=== PATIENT | female | born 1990 | race Caucasian/White ===

== ENCOUNTER → 2017-10-06 13:27 | Outpatient (CLI) | payer OTHER, SELFPAY | PROVIDERS: Visit Provider Podiatrist | DX: M25.572 Pain in left ankle and joints of left foot (principal); M79.672 Pain in left foot ==

== ENCOUNTER → 2018-09-06 12:49 | Outpatient (CLI) | payer OTHER, SELFPAY ==
--- NOTE | 2018-09-06 12:51 | US_ITS ---
US Arterial Ankle Brachial Ind History: ITS.REASON: Dependant edema, dizziness, weakness lower extremities, current smoker ORDERING PHYSICIAN: Terrell Hyman PATIENT AGE: 28 years TECHNIQUE: Segmental pressures obtained of both right and left leg. These are compared to brachial blood pressure to yield index at each level sampled including summary MITALI. The data sheets from the procedure are available in PACS FINDINGS Rest study only performed today No prior studies available for comparison. Blood pressures reported are in millimeters mercury. RIGHT LEG MITALI = 1.0. RIGHT LEG TBI=.7 Brachial BP: 133 Thigh BP: 144 Calf BP: 133 Ankle PT: 136 Ankle DP : 164 Digit =99 LEFT LEG MITALI = 1.1 LEFT LEG TBI= .8 Brachial BPD: 126 Thigh BP: 143 Calf BP: 147 Ankle PT:148 Ankle DP: 157 Digit = 102 Pulses and waveforms: Normal IMPRESSION: The ABIs as reported above are within normal limits. Waveforms and pulses are also unremarkable.
--- NOTE | 2018-09-06 12:51 | NVE_ITS ---
Venous Exam Indications: 729.5 Pain in limb. IMPRESSIONS 1. There is no evidence of significant Reflux. 2. No evidence of deep or superficial vein thrombosis involving the right lower extremity and left lower extremity Complete lower extremity venous duplex evaluation. Doppler flow study including spectral analysis, color and vela scale imaging. Location: Vascular laboratory. Patient status: Outpatient. Tables: Venous flow and imaging: + +-------+ + Location Overall Flow properties + +-------+ + Right common femoral Patent Normal phasicity; spontaneous; normal augmentation; compressible + +-------+ + Right saphenofemoral junction Patent Compressible + +-------+ + Right profunda femoral Patent Compressible + +-------+ + Right femoral Patent Normal phasicity; spontaneous; normal augmentation; compressible; no reflux + +-------+ + Right greater saphenous Patent Normal phasicity; spontaneous; normal augmentation; compressible + +-------+ + Right popliteal Patent Normal phasicity; spontaneous; normal augmentation; compressible + +-------+ + Right posterior tibial Patent Compressible + +-------+ + Right peroneal Patent Compressible + +-------+ + Right gastrocnemius Patent Compressible + +-------+ + Right soleal Patent Compressible + +-------+ + Left common femoral Patent Normal phasicity; spontaneous; normal augmentation; compressible + +-------+ + Left saphenofemoral junction Patent Compressible + +-------+ + Left profunda femoral Patent Compressible + +-------+ + Left femoral Patent Normal phasicity; spontaneous; normal augmentation; compressible + +-------+ + Left greater saphenous Patent Normal phasicity; spontaneous; normal augmentation; compressible + +-------+ + Left popliteal Patent Normal phasicity; spontaneous; normal augmentation; compressible + +------
== END ==
PROVIDERS: PCP Nurse Practitioner Family; Visit Provider Nurse Practitioner Family
DX: R60.9 Edema, unspecified (principal); R42 Dizziness and giddiness
CPT/HCPCS: 93922; 93970

== ENCOUNTER → 2018-09-25 16:40 | Outpatient (CLI) | payer OTHER, SELFPAY ==
[2018-09-25 18:30] LABS: Basophils % 0.5 % (0.1-2.0); Eosinophils # 0.2 K/mm3 (0.0-0.4); Eosinophils % 2.1 % (0.1-12.0); Hematocrit 39.4 % (37.0-47.0); Hemoglobin 12.8 g/dL (12.2-16.2); Lymphocytes # 2.2 K/mm3 (0.7-4.5); Lymphocytes % 25.3 % (10-50); Mean Corpuscular HGB Conc 32.6 g/dL (31.8-35.4); Mean Corpuscular Hemoglobin 29.6 pg (27.0-31.2); Mean Corpuscular Volume 90.9 fl (81-99); Mean Platelet Volume 7.8 fl (7.4-10.4); Monocytes # 0.4 K/mm3 (0.1-1.0); Monocytes % 4.2 % (1.7-9.3); Neutrophils # 5.9 K/mm3 (1.8-7.8); Neutrophils % 67.9 % (37.0-80.0); Platelet Count 290 K/mm3 (142-424); Red Blood Count 4.34 M/mm3 (4.20-5.40); White Blood Count 8.6 K/mm3 (4.8-10.8)
[2018-09-25 19:14] LABS: Alanine Aminotransferase 53 U/L (12-78); Albumin/Globulin Ratio 1.1 (1.1-1.8); Alkaline Phosphatase 126 U/L (46-116); Anion Gap 16.5 mEq/L (5-15); Aspartate Amino Transferase 49 U/L (15-37); Bilirubin,Total 0.5 mg/dL (0.2-1.0); Blood Urea Nitrogen 9 mg/dL (7-18); Calcium 9.4 mg/dL (8.5-10.1); Carbon Dioxide 25 mmol/L (21.0-32.0); Chloride 100 mmol/L (98-107); Chol/HDL Ratio 2.5 (1-3.5); Cholesterol 211 mg/dL (140-200); Creatinine,Serum 0.54 mg/dL (0.55-1.02); Estimated Glomerular Filt Rate 133 ml/min (>60); Free Thyroxine Index 1.9 ug/dL (5.93-13.13); GFR (African American) 162 ML/MIN (>60); Globulin 3.7 gm/dl (1.3-3.2); Glucose 89 mg/dL (74-106); HDL Cholesterol 85 mg/dL (29-89); LDL Cholesterol 96 mg/dL (0-130); Potassium 4.5 mmoL/L (3.5-5.1); Sodium 137 mmol/L (136-145); T4 (Thyroxine) 5.4 ug/dl (4.7-13.3); Thyroid Stimulating Hormone 3.02 uIU/ml (0.358-3.740); Total Protein,Serum 7.7 gm/dL (6.4-8.2); Triglycerides 151 mg/dL (30-200); Triiodothryronine (T3) Uptake 35 % (31-39); VLDL Cholesterol 30 mg/dL (0-40)
[2018-09-27 08:43] LABS: Thyroid Peroxidase Antibodies 13 IU/mL (0-34); Vitamin B12 512 pg/mL (232-1245)
[2018-09-29 07:23] LABS: Thyroid Stimulating Immunoglob <0.10 IU/L (0.00-0.55)
== END ==
PROVIDERS: PCP Physician Assistant; Visit Provider Physician Assistant
DX: R00.2 Palpitations (principal); R42 Dizziness and giddiness; R55 Syncope and collapse; E55.9 Vitamin D deficiency, unspecified
CPT/HCPCS: 80053; 80061; 82607; 82652; 82746; 84436; 84443; 84445; 84479; 85025; 86376; 93005; 93225; 93226

== ENCOUNTER → 2019-07-17 17:06 | Outpatient (CLI) | payer OTHER, SELFPAY ==
[2019-07-17 17:47] LABS: Basophils # 0.1 K/mm3 (0-0.2); Basophils % 0.9 % (0.1-2.0); Eosinophils # 0.2 K/mm3 (0.0-0.4); Eosinophils % 2.9 % (0.1-12.0); Hematocrit 44.7 % (37.0-47.0); Hemoglobin 14.4 g/dL (12.2-16.2); Lymphocytes # 2.1 K/mm3 (0.7-4.5); Lymphocytes % 31.3 % (10-50); Mean Corpuscular HGB Conc 32.2 g/dL (31.8-35.4); Mean Corpuscular Hemoglobin 30.7 pg (27.0-31.2); Mean Corpuscular Volume 95.4 fl (81-99); Monocytes # 0.3 K/mm3 (0.1-1.0); Monocytes % 5.2 % (1.7-9.3); Neutrophils # 3.9 K/mm3 (1.8-7.8); Neutrophils % 59.6 % (37.0-80.0); Platelet Count 204 K/mm3 (142-424); Red Blood Count 4.69 M/mm3 (4.20-5.40); Red Cell Distribution Width 15.8 % (11.5-17.5); White Blood Count 6.6 K/mm3 (4.8-10.8)
[2019-07-17 18:33] LABS: Alanine Aminotransferase 58 U/L (12-78); Albumin Level 3.6 gm/dL (3.4-5.0); Albumin/Globulin Ratio 1.1 (1.1-1.8); Alkaline Phosphatase 100 U/L (46-116); Anion Gap 14.9 mEq/L (5-15); Aspartate Amino Transferase 118 U/L (15-37); Bilirubin,Total 0.4 mg/dL (0.2-1.0); Blood Urea Nitrogen 8 mg/dL (7-18); Calcium 8.9 mg/dL (8.5-10.1); Carbon Dioxide 25 mmol/L (21.0-32.0); Chloride 102 mmol/L (98-107); Chol/HDL Ratio 1.9 (1-3.5); Cholesterol 165 mg/dL (140-200); Creatinine,Serum 0.63 mg/dL (0.55-1.02); Estimated Glomerular Filt Rate 112 ml/min (>60); GFR (African American) 135 ML/MIN (>60); Globulin 3.4 gm/dl (1.3-3.2); Glucose 99 mg/dL (74-106); HDL Cholesterol 88 mg/dL (29-89); LDL Cholesterol 61 mg/dL (0-130); Potassium 3.9 mmoL/L (3.5-5.1); Sodium 138 mmol/L (136-145); T4 (Thyroxine) 4.6 ug/dl (4.7-13.3); Thyroid Stimulating Hormone 0.67 uIU/ml (0.358-3.740); Triglycerides 79 mg/dL (30-200); VLDL Cholesterol 16 mg/dL (0-40)
[2019-07-19 15:39] LABS: Vitamin D 25 Hydroxy 20.1 ng/mL (30.0-100.0)
== END ==
PROVIDERS: Visit Provider Nurse Practitioner Family
DX: R53.83 Other fatigue (principal); E55.9 Vitamin D deficiency, unspecified
CPT/HCPCS: 80053; 80061; 82652; 84436; 84443; 85025

== ENCOUNTER → 2020-01-29 15:06 | Outpatient (CLI) | payer OTHER, SELFPAY ==
[2020-01-29 18:04] LABS: Basophils % 0.4 % (0.1-2.0); Eosinophils # 0.2 K/mm3 (0.0-0.4); Eosinophils % 2.1 % (0.1-12.0); Hematocrit 38.8 % (37.0-47.0); Hemoglobin 12.5 g/dL (12.2-16.2); Lymphocytes # 4.6 K/mm3 (0.7-4.5); Lymphocytes % 39.5 % (10-50); Mean Corpuscular HGB Conc 32.1 g/dL (31.8-35.4); Mean Corpuscular Hemoglobin 26.8 pg (27.0-31.2); Mean Corpuscular Volume 83.5 fl (81-99); Mean Platelet Volume 7.9 fl (7.4-10.4); Monocytes # 0.7 K/mm3 (0.1-1.0); Monocytes % 5.6 % (1.7-9.3); Neutrophils # 6.1 K/mm3 (1.8-7.8); Neutrophils % 52.5 % (37.0-80.0); Platelet Count 353 K/mm3 (142-424); Red Blood Count 4.65 M/mm3 (4.20-5.40); Red Cell Distribution Width 15.2 % (11.5-17.5); White Blood Count 11.7 K/mm3 (4.8-10.8)
[2020-01-29 18:16] LABS: Alanine Aminotransferase 24 U/L (12-78); Albumin Level 3.6 g/dl (3.5-5.0); Albumin/Globulin Ratio 1.4 (1.1-1.8); Alkaline Phosphatase 84 U/L (38-126); Anion Gap 11.2 mEq/L (5-15); Aspartate Amino Transferase 25 U/L (14-36); Bilirubin,Total 0.3 mg/dl (0.2-1.3); Blood Urea Nitrogen 10 mg/dl (7-17); Calcium 9.1 mg/dl (8.4-10.2); Carbon Dioxide 27 mmol/L (22.0-30.0); Chloride 104 mmol/L (98-107); Chol/HDL Ratio 3.5 (1-3.5); Cholesterol 218 mg/dl (140-200); Estimated Glomerular Filt Rate 145 ml/min (>60); GFR (African American) 175 ML/MIN (>60); Globulin 2.5 g/dL (1.3-3.2); Glucose 82 mg/dl (74-100); HDL Cholesterol 62 mg/dl (40-60); Potassium 4.2 mmoL/L (3.5-5.1); Sodium 138 mmol/L (136-145); Total Protein,Serum 6.1 g/dl (6.3-8.2); Triglycerides 203 mg/dl (30-150); VLDL Cholesterol 41 mg/dL (0-40)
[2020-01-29 18:27] LABS: Direct LDL Cholesterol 126.64 mg/dL (100-129)
[2020-01-29 18:36] LABS: 25-OH Vitamin D, Total 30.2 ng/mL (30-100); T4 (Thyroxine) 4.4 ug/dl (5.53-11.0)
[2020-01-29 18:48] LABS: Thyroid Stimulating Hormone 5.44 uIU/mL (0.465-4.68)
== END ==
PROVIDERS: PCP Physician Assistant; Visit Provider Physician Assistant
DX: R42 Dizziness and giddiness (principal)
CPT/HCPCS: 80053; 80061; 82306; 84436; 84443; 85025; 93225; 93226